=== PATIENT | male | born 1970 | race American Indian/Alaskan Native ===

== ENCOUNTER 2019-04-19 04:29 | Emergency (ER) | payer MEDICARE ==
[2019-04-19 04:37] VITALS: BP 138/101
--- NOTE | 2019-04-19 06:47 | Emergency Department Report ---
ED General Adult HPI - General Chief complaint: Earache Stated complaint: HEADACHE Time Seen by Provider: 04/19/19 06:43 Source: patient Mode of arrival: Ambulatory Limitations: No Limitations - History of Present Illness Initial comments: Patient is a 48-year-old male with no past medical history presents to the ED with complaint of acute onset persistent severe right ear pain on anterior auricular lymphadenopathy for the last 8 hours. Patient denies traumatic injury, nausea, vomiting, dizziness, hearing loss, headache, chest pain, shortness of breath, sinus congestion or cough. MD Complaint: right ear pain -: Sudden, hour(s) (8) Location: face (right ear) Radiation: non-radiation Severity scale (0 -10): 6 Quality: aching, sharp, constant Consistency: constant Improves with: none Worsens with: none Associated Symptoms: denies other symptoms. denies: confusion, chest pain, cough, diaphoresis, fever/chills, headaches, loss of appetite, malaise, nausea/vomiting, rash, seizure, shortness of breath, syncope, weakness Treatments Prior to Arrival: none - Related Data Previous Rx's Medication Instructions Recorded Last Taken Type Amoxicillin/Potassium Clav 1 each PO Q12H #20 tablet 04/19/19 Unknown Rx [Augmentin 875-125 Tablet] Ibuprofen [Motrin] 800 mg PO Q8HR PRN #24 tablet 04/19/19 Unknown Rx Ofloxacin 0.3% [Floxin 0.3% Otic] 1 drop OT DAILY #5 ml 04/19/19 Unknown Rx Allergies Allergy/AdvReac Type Severity Reaction Status Date / Time No Known Allergies Allergy Unverified 04/19/19 04:39 ED Review of Systems ROS: Stated complaint: HEADACHE Other details as noted in HPI Constitutional: denies: chills, fever Eyes: denies: eye pain, eye discharge, vision change ENT: ear pain (right). denies: throat pain Respiratory: denies: cough, shortness of breath, wheezing Cardiovascular: denies: chest pain, palpitations Endocrine: no symptoms reported Gastrointestinal: denies: abdominal pain, nausea, diarrhea Genitourinary: denies: urgency, dysuria Musculoskeletal: denies: back pain, joint swelling, arthralgia Skin: denies: rash, lesions Neurological: denies: headache, weakness, paresthesias Psychiatric: denies: anxiety, depression Hematological/Lymphatic: denies: easy bleeding, easy bruising ED Past Medical Hx - Past Medical History Previous Medical History?: No - Surgical History Past Surgical History?: No - Social History Smoking Status: Never Smoker Substance Use Type: None - Medications Home Medications: Home Medications Medication Instructions Recorded Confirmed Last Taken Type Amoxicillin/Potassium Clav 1 each PO Q12H #20 tablet 04/19/19 Unknown Rx [Augmentin 875-125 Tablet] Ibuprofen [Motrin] 800 mg PO Q8HR PRN #24 tablet 04/19/19 Unknown Rx Ofloxacin 0.3% [Floxin 0.3% Otic] 1 drop OT DAILY #5 ml 04/19/19 Unknown Rx ED Physical Exam - General Limitations: No Limitations General appearance: alert, in no apparent distress - Head Head exam: Present: atraumatic, normocephalic, normal inspection - Eye Eye exam: Present: normal appearance, PERRL, EOMI Pupils: Present: normal accommodation - ENT ENT exam: Present: normal exam, normal orophraynx, mucous membranes moist, other (Mildly erythematous, buldging right TM; Palpable tenderness of preauricular lymph nodes) - Neck Neck exam: Present: normal inspection, full ROM, lymphadenopathy. Absent: tenderness, meningismus, thyromegaly - Respiratory Respiratory exam: Present: normal lung sounds bilaterally. Absent: respiratory distress, wheezes, rales, rhonchi, stridor, chest wall tenderness, accessory muscle use, decreased breath sounds - Cardiovascular Cardiovascular Exam: Present: regular rate, normal rhythm, normal heart sounds. Absent: systolic murmur, diastolic murmur, rubs, gallop - GI/Abdominal GI/Abdominal exam: Present: soft, normal bowel sounds. Absent: distended, tenderness, guarding, rebound, hyperactive bowel sounds, hypoactive bowel sounds, organomegaly, mass - Rectal Rectal exam: Present: deferred - Extremities Exam Extremities exam: Present: normal inspection, full ROM, normal capillary refill. Absent: tenderness, pedal edema - Back Exam Back exam: Present: normal inspection, full ROM. Absent: tenderness, CVA tenderness (R), CVA tenderness (L), muscle spasm, paraspinal tenderness - Neurological Exam Neurological exam: Present: alert, oriented X3, CN II-XII intact, normal gait, reflexes normal - Psychiatric Psychiatric exam: Present: normal affect, normal mood - Skin Skin exam: Present: warm, dry, intact, normal color. Absent: rash ED Course Vital Signs 04/19/19 04:34 Temperature 97.8 F Pulse Rate 77 Respiratory 16 Rate Blood Pressure 138/101 O2 Sat by Pulse 98 Oximetry - Reevaluation(s) Reevaluation #1: 04/19/19 06:49 This is a 48-year-old male who presented to the ED with right ear pain for the last 8 hours. Patient is alert and oriented 3 and is not in distress but appears to be in pain. Patient was treated in the ED and discharged home on medications including antibiotics for urinary infection. Patient was advised to follow-up at [facility] going to clinic to establish care in 7-10 days. Patient is advised to return to the ED immediately if his symptoms get worse. ED Medical Decision Making - Medical Decision Making This is a 48-year-old male who presented to the ED with right ear pain for the last 8 hours. Patient is alert and oriented 3 and is not in distress but appears to be in pain. Patient was treated in the ED and discharged home on medications including antibiotics for urinary infection. Patient was advised to follow-up at [facility] going to clinic to establish care in 7-10 days. Patient is advised to return to the ED immediately if his symptoms get worse. - Differential Diagnosis acute otitis media; otitis externa; lymphadenopathy; acute URI Critical care attestation.: If time is entered above; I have spent that time in minutes in the direct care of this critically ill patient, excluding procedure time. ED Disposition Clinical Impression: Acute otitis media, right, Lymphadenopathy, preauricular Disposition: [id number] TO HOME OR SELFCARE Is pt being admited?: No Does the pt Need Aspirin: No Condition: Stable Instructions: Otitis Media (ED), Lymphadenopathy (ED) Additional Instructions: Take medications with food, drink plenty of fluids and follow up with your primary care physician in 5-7 days for reevaluation. Return to the ED immediately if symptoms get worse. Prescriptions: Amoxicillin/Potassium Clav [Augmentin 875-125 Tablet] 1 each PO Q12H #20 tablet Ofloxacin 0.3% [Floxin 0.3% Otic] 1 drop OT DAILY #5 ml Ibuprofen [Motrin] 800 mg PO Q8HR PRN #24 tablet PRN Reason: Pain , Severe (7-10) Referrals: [facility] [Outside] - 3-5 Days Time of Disposition: 06:45 Print Language: GEORGIAN
[2019-04-19] MEDS ORDERED: TYLENOL PO ONE (06:50)
[2019-04-19] MEDS ORDERED: IBUPROFEN PO ONE (06:51)
== END 2019-04-19 07:23 | disposition home or self-care (01) ==
LOC: ED 04:29
DX: H66.91 Otitis media, unspecified, right ear (principal); Q18.1 Preauricular sinus and cyst; R59.1 Generalized enlarged lymph nodes
CPT/HCPCS: 99282